=== PATIENT | female | born 1985 | race Caucasian/White ===

== ENCOUNTER 2024-11-03 06:26 | Day surgery (SDC) | payer OTHER, SELFPAY | END 2024-11-03 13:15 | disposition home or self-care (01) | LOC: GI 06:26 | PROVIDERS: ATTENDING PHYSICIAN Internal Medicine Gastroenterology | DX: Z12.11 Encounter for screening for malignant neoplasm of colon (principal); Z83.719 Family history of colon polyps, unspecified; Z80.0 Family history of malignant neoplasm of digestive organs | CPT/HCPCS: 45385; 88305 ==